=== PATIENT | female | born 1965 | race Caucasian/White ===

== ENCOUNTER 2024-08-31 09:22 | Emergency (ER) | payer MEDICAID ==
[~2024-08-31] VITALS: Ht 144.8 cm; Wt 50.0 kg
[2024-08-31 09:27] VITALS: TEMP 97.6; O2SAT 98
[2024-08-31] MEDS: ACETAMINOPHEN 325MG TABLET PO ONE (09:43)
[2024-08-31] MEDS ORDERED: TOPUD PO (12:12)
[2024-08-31 12:37] VITALS: BP 145/63; PULSE 89; RESP 14; O2SAT 99
== END 2024-08-31 12:38 | disposition home or self-care (01) ==
LOC: ER 09:22
DX: S00.03XA Contusion of scalp, initial encounter (principal); I10 Essential (primary) hypertension; E11.9 Type 2 diabetes mellitus without complications; W18.39XA Other fall on same level, initial encounter; Y93.89 Activity, other specified; Y92.89 Other specified places as the place of occurrence of the external cause; Y99.8 Other external cause status
CPT/HCPCS: 99284